=== PATIENT | female | born 1960 | race Caucasian/White ===

== ENCOUNTER 2018-07-26 12:25 | Emergency (ER) | payer OTHER ==
[~2018-07-26] VITALS: Ht 154.9 cm; Wt 70.8 kg
[~2018-07-26 12:25] MED LIST: BUPROPION; CALCIUM; COMPAZINE10 MG PO; COMPAZINE25 MG RE; EFFEXOR; HYDROCODON-ACE1 EAC7 PO; LEVOTHYROXINE 0.1 MG PO; LOMOTIL TABLET1 EACH PO; PAXIL; PAXIL40 MG; PHENERGAN 25 MG25 M1 PO; RIZATRIPTAN10 MG PO; SYNTHROID; VITAMIN D400 UNI1 PO; WELLBUTRIN SR150 MG; ZOFRAN ODT4 MG PO
[2018-07-26] MEDS ORDERED: PAXIL10 MG PO (12:50)
[2018-07-26] MEDS ORDERED: BUSPIRONE HCL10 MG PO (12:50)
[2018-07-26] MEDS ORDERED: SYNTHROID112 MC1 PO (12:50)
[2018-07-26] MEDS ORDERED: METHYLPHENIDATE5 M1 PO (12:51)
[2018-07-26] MEDS ORDERED: MAXALT MLT ODT10 M1 PO (12:51)
[2018-07-26 13:13] LABS: ABSOLUTE BASOPHILS 0.1 thou/uL (0.0-0.2); ABSOLUTE EOSINOPHILS 0.1 thou/uL (0.0-0.7); ABSOLUTE LYMPHOCYTES 2.9 thou/uL (0.8-5.3); ABSOLUTE MONOCYTES 0.4 thou/uL (0.0-1.2); ABSOLUTE NEUTROPHILS 5.2 thou/uL (1.6-8.1); BASOPHILS 1.3 %; EOSINOPHILS 1.3 %; HEMATOCRIT 42.6 % (37.0-47.0); HEMOGLOBIN 13.8 gm/dL (12.0-15.0); MCH 27.1 pg (26.0-34.0); MCHC 32.3 g/dL (28.0-37.0); MCV 83.9 fL (80.0-100.0); MONOCYTES 4.6 %; MPV 7.8 fl. (7.2-11.1); NUCLEATED RBCS 0 /100WBC; PLATELET COUNT* 327 thou/uL (150-400); POLYS 59.8 %; RBC 5.08 mil/uL (4.20-5.00); RDW-CV 14.7 % (10.5-14.5); WBC 8.8 thou/uL (4.0-11.0)
[2018-07-26 13:17] LABS: URINE BILIRUBIN NEGATIVE (Negative); URINE BLOOD NEGATIVE (Negative); URINE CLARITY CLEAR; URINE COLOR YELLOW; URINE GLUCOSE-RANDOM NEGATIVE (Negative); URINE KETONES NEGATIVE (Negative); URINE LEUKOCYTES NEGATIVE (Negative); URINE NITRITE NEGATIVE (Negative); URINE PROTEIN NEGATIVE (Negative); URINE SPECIFIC GRAVITY >= 1.030 (1.005-1.030); URINE UROBILINOGEN 0.2 E.U./dl (0.2-1.0)
[2018-07-26 13:24] LABS: CALCIUM 8.9 mg/dL (8.5-10.1); CREATININE 1.1 mg/dL (0.6-1.3); POTASSIUM 3.3 mmol/L (3.5-5.1)
[2018-07-26 13:28] LABS: ALBUMIN 3.8 g/dL (3.4-5.0); TOTAL BILIRUBIN 0.5 mg/dL (<0.1-1.0); TOTAL PROTEIN 7.4 g/dL (6.4-8.2)
[2018-07-26 14:11] VITALS: BP 96/65
[2018-07-26] MEDS ORDERED: NORCO 5-325 TA1 EACH PO (14:17)
[2018-07-26] MEDS ORDERED: FLAGYL500 M1 PO (14:17)
[2018-07-26] MEDS ORDERED: CIPRO500 MG PO (14:17)
[2018-07-26] MEDS ORDERED: ONDANSETRON HCL4 M2 PO (14:17)
== END 2018-07-26 14:42 | disposition home or self-care (01) ==
LOC: M.ERS 12:25
PROVIDERS: Nurse Practitioner Family
DX: K52.9 Noninfective gastroenteritis and colitis, unspecified (principal); K76.89 Other specified diseases of liver; I88.0 Nonspecific mesenteric lymphadenitis; E03.9 Hypothyroidism, unspecified; F32.9 Major depressive disorder, single episode, unspecified; F41.9 Anxiety disorder, unspecified; N80.9 Endometriosis, unspecified; Z88.8 Allergy status to other drugs, medicaments and biological substances

== ENCOUNTER 2020-01-24 15:14 | Emergency (ER) | payer OTHER ==
[~2020-01-24] VITALS: Ht 154.9 cm; Wt 69.8 kg
[~2020-01-24 15:14] MED LIST changes: +BUSPIRONE HCL10 MG PO; +CIPRO500 MG PO; +FLAGYL500 M1 PO; +MAXALT MLT ODT10 M1 PO; +METHYLPHENIDATE5 M1 PO; +NORCO 5-325 TA1 EACH PO; +ONDANSETRON HCL4 M2 PO; +PAXIL10 MG PO; +SYNTHROID112 MC1 PO
[2020-01-24 16:18] LABS: ABSOLUTE BASOPHILS 0.1 thou/uL (0.0-0.2); ABSOLUTE EOSINOPHILS 0.1 thou/uL (0.0-0.7); ABSOLUTE MONOCYTES 0.4 thou/uL (0.0-1.2); ABSOLUTE NEUTROPHILS 4.8 thou/uL (1.6-8.1); BASOPHILS 0.8 %; EOSINOPHILS 1.6 %; HEMATOCRIT 40.1 % (37.0-47.0); HEMOGLOBIN 13.4 gm/dL (12.0-15.0); LYMPHOCYTES 35.7 %; MCH 28.1 pg (26.0-34.0); MCHC 33.5 g/dL (28.0-37.0); MPV 7.7 fl. (7.2-11.1); NUCLEATED RBCS 0 /100WBC; PLATELET COUNT* 335 thou/uL (150-400); POLYS 56.9 %; RBC 4.77 mil/uL (4.20-5.00); WBC 8.4 thou/uL (4.0-11.0)
[2020-01-24 16:25] LABS: CALCIUM 9.4 mg/dL (8.5-10.1); CREATININE 0.9 mg/dL (0.6-1.3); POTASSIUM 3.7 mmol/L (3.5-5.1)
[2020-01-24 16:36] LABS: TOTAL BILIRUBIN 0.3 mg/dL (<0.1-1.0); TOTAL PROTEIN 7.7 g/dL (6.4-8.2)
[2020-01-24] MEDS ORDERED: TESSALON PERLE100 MG PO (17:17)
[2020-01-24] MEDS ORDERED: DOXYCYCLINE 10100 MG PO (17:17)
[2020-01-24] MEDS ORDERED: MEDROLDOSEPACK PO (17:17)
[2020-01-24] MEDS ORDERED: PROAIR HFA8.5 GM INH (17:18)
[2020-01-24 17:36] VITALS: BP 111/79
--- NOTE | 2020-01-25 10:49 | EKG ---
[place] [address] ELECTROCARDIOGRAM REPORT Name: BENY LEA Room: [facility]#: [id number] Admission: 01/24/20 Attend Phys: Discharge: 01/24/20 Date of : 58 Date of Service: 01/24/20 1520 Report #: [id number] THIS REPORT FOR: //name// [facility] ED Test Date: 2020-01-24 Test Time: 15:20:51 Pat Name: BENY LEA Department: Room: Gender: Art Model: Maci : 1960 Requested By: Joanne Odell Order Number: [id number] MD: Davon Roach Measurements Intervals [place] Rate: 75 P: 56 MN: 164 QRS: -19 QRSD: 88 T: 19 QT: 463 QTc: 518 Interpretive Statements Sinus rhythm Borderline left axis deviation Borderline T abnormalities, anterior leads Prolonged QT interval Compared to ECG 04/14/2014 13:03:15 Prolonged QT interval now present T-wave abnormality still present Electronically Signed On 01-25-2020 10:47:49 CDT by Davon Roach [email or web address] <ELECTRONICALLY SIGNED> By: Frank Roach MD, [facility] 01/25/20 1047 1520 1520 Frank Roach MD, [facility] /EPI
== END 2020-01-24 17:36 | disposition home or self-care (01) ==
LOC: M.ERS 15:14
PROVIDERS: Physician Assistant
DX: J20.9 Acute bronchitis, unspecified (principal); I45.81 Long QT syndrome; E03.9 Hypothyroidism, unspecified; N80.9 Endometriosis, unspecified; Z88.8 Allergy status to other drugs, medicaments and biological substances

== ENCOUNTER 2021-08-08 13:13 | Emergency (ER) | payer OTHER ==
[~2021-08-08] VITALS: Ht 154.9 cm; Wt 70.3 kg
[~2021-08-08 13:13] MED LIST changes: +DOXYCYCLINE 10100 MG PO; +MEDROLDOSEPACK PO; +PROAIR HFA8.5 GM INH; +TESSALON PERLE100 MG PO
[2021-08-08 13:49] LABS: ABSOLUTE EOSINOPHILS 0.1 thou/uL (0.0-0.7); ABSOLUTE LYMPHOCYTES 1.7 thou/uL (0.8-5.3); ABSOLUTE MONOCYTES 0.4 thou/uL (0.0-1.2); ABSOLUTE NEUTROPHILS 6.5 thou/uL (1.6-8.1); BASOPHILS 0.5 %; EOSINOPHILS 1.4 %; HEMATOCRIT 44.5 % (37.0-47.0); HEMOGLOBIN 14.8 gm/dL (12.0-15.0); LYMPHOCYTES 19.7 %; MCH 27.8 pg (26.0-34.0); MCHC 33.2 g/dL (28.0-37.0); MCV 83.7 fL (80.0-100.0); MPV 7.1 fl. (7.2-11.1); NUCLEATED RBCS 0 /100WBC; PLATELET COUNT* 315 thou/uL (150-400); POLYS 73.4 %; RBC 5.32 mil/uL (4.20-5.00); RDW-CV 14.2 % (10.5-14.5); WBC 8.8 thou/uL (4.0-11.0)
[2021-08-08 13:59] LABS: CREATININE 1.1 mg/dL (0.6-1.3); POTASSIUM 3.6 mmol/L (3.5-5.1)
[2021-08-08 14:04] LABS: ALBUMIN 3.8 g/dL (3.4-5.0); TOTAL BILIRUBIN 0.4 mg/dL (<0.1-1.0); TOTAL PROTEIN 7.7 g/dL (6.4-8.2)
[2021-08-08 14:32] LABS: URINE BILIRUBIN NEGATIVE (Negative); URINE BLOOD TRACE (Negative); URINE CLARITY SL CLOUDY; URINE COLOR YELLOW; URINE GLUCOSE-RANDOM NEGATIVE (Negative); URINE KETONES NEGATIVE (Negative); URINE LEUKOCYTES-REFLEX TRACE (Negative); URINE NITRITE-REFLEX NEGATIVE (Negative); URINE PROTEIN NEGATIVE (Negative); URINE SPECIFIC GRAVITY >= 1.030 (1.005-1.030); URINE UROBILINOGEN 0.2 E.U./dl (0.2-1.0)
[2021-08-08 14:46] LABS: BACTERIA-REFLEX None Seen /HPF (None Seen); CASTS None Seen /LPF (None Seen); CRYSTALS None Seen /LPF (None Seen); SQUAMOUS 4-10 Moderate /LPF (0-3); URINE RBC 0-2 Rare /HPF (0-2); URINE WBC-REFLEX 0-5 Rare /HPF (0-5)
[2021-08-08] MEDS ORDERED: CIPRO500 M1 PO (15:20)
[2021-08-08] MEDS ORDERED: METRONIDAZOLE500 M4 PO (15:20)
[2021-08-08] MEDS ORDERED: APAP W/CODEINE1 TA2 PO (15:20)
[2021-08-08] MEDS ORDERED: ONDANSETRON HCL4 M2 PO (15:20)
[2021-08-08 15:30] VITALS: BP 116/79
--- NOTE | 2021-08-09 15:58 | EKG ---
[place] [address] ELECTROCARDIOGRAM REPORT Name: BENY LEA Room: [facility]#: [id number] Admission: 08/08/21 Attend Phys: Discharge: 08/08/21 Date of : 58 Date of Service: 08/08/21 1415 Report #: [id number] THIS REPORT FOR: //name// [facility] ED Test Date: 2021-08-08 Test Time: 14:15:01 Pat Name: BENY LEA Department: Room: Gender: [employer]: [facility] : 1960 Requested By: Joanne Odell Order Number: [id number] MD: Prasanna Aguila Measurements Intervals [place] Rate: 75 P: 42 IA: 162 QRS: -21 QRSD: 93 T: 47 QT: 385 QTc: 430 Interpretive Statements Sinus rhythm Borderline left axis deviation Borderline low voltage, extremity leads Nonspecific T abnormalities, anterior leads Compared to ECG 01/24/2020 15:20:51 Prolonged QT interval no longer present T-wave abnormality still present Electronically Signed On 08-09-2021 15:58:31 PATIENT RELATIONS LIAISON by Prasanna Aguila [email or web address] <ELECTRONICALLY SIGNED> By: Prasanna Aguila MD, FAC 08/09/21 1558 1415 1415 Prasanna Aguila MD, FAC /EPI
== END 2021-08-08 15:31 | disposition home or self-care (01) ==
LOC: M.ERS 13:13
PROVIDERS: Physician Assistant
DX: K52.9 Noninfective gastroenteritis and colitis, unspecified (principal); E03.9 Hypothyroidism, unspecified; F32.9 Major depressive disorder, single episode, unspecified; F41.9 Anxiety disorder, unspecified; Z79.899 Other long term (current) drug therapy; Z88.8 Allergy status to other drugs, medicaments and biological substances

== ENCOUNTER → 2021-08-17 | Outpatient (CLI) | payer OTHER ==
[~2021-08-17] MED LIST changes: +APAP W/CODEINE1 TA2 PO; +CIPRO500 M1 PO; +METRONIDAZOLE500 M4 PO
--- NOTE | 2021-08-17 16:00 | CARDNUC ---
[place] [address] CARDIAC NUCLEAR IMAGING REPORT Name: BENY LEA Jason Room: [facility]#: [id number] Admission: 08/17/21 Attend Phys: Dieter Macias, Discharge: Date of : 58 Date of Service: 08/17/21 1600 Report #: [id number] THIS REPORT FOR: cc: Charles Swanson Steve T. DO [place],Dieter Cedeno MD [facility] ~ APPROVED REPORT Imaging Protocol: Stress Tc-99m/Rest Tc-99m 1 day Study performed: 08/17/2021 09:02:42 Indication: Chest pain Patient Location: Out-Patient Stress Nurse: Selena Tapia RN Ht: 5 ft 1 in Wt: 160 lbs BSA: 1.72 m2 BMI: 30.22 Medical History Medical History: Hyperlipidemia Medications: no cardiac meds Allergies: lamotrigine Cardiac Risk Factors: Age, FHX of CAD, Hyperlipidemia Exercise History: Physically active Resting Data Rest SPECT myocardial perfusion imaging was performed in supine position 30 minutes following the intravenous injection of 11.2 mCi of Tc-99m Sestamibi. The images were gated to evaluate regional wall motion and calculate left ventricular ejection fraction. Administration Route: IV Administration Site: Right AC Exercise Stress At peak stress, the patient was injected intravenously with 32.6mCi of Tc-99m Sestamibi. Time of stress injection: 09:10 Administration Route: IV Administration Site: Right AC Heart Rate at time of stress injection: 130 bpm. Patient continued to exercise for 1 minute(s). Gated Stress SPECT was performed 30 minutes [place] [address] CARDIAC NUCLEAR IMAGING REPORT Name: BENY LEA Room: [facility]#: [id number] Admission: 08/17/21 Attend Phys: Dieter Macias, Discharge: Date of : 58 Date of Service: 08/17/21 1600 Report #: [id number] The images were gated to evaluate regional wall motion and calculate left ventricular ejection fraction. Prone imaging was performed. Stress Test Details Stress Test: Exercise stress testing was performed using a Socar protocol. HR Max Heart Rate (APMHR): 159 bpm Resting HR: 70 bpm Target HR (85% APMHR): 135 bpm Max HR Achieved: 129 bpm % of APMHR: 81 Recovery HR: 83 bpm BP Resting BP: 117/80 mmHg Max BP: 189/101 mmHg Recovery BP: 127/83 mmHg ECG Resting ECG: Sinus Rhythm Stress ECG: Sinus Tachycardia ST Change: None Arrhythmia: None Recovery ECG: Sinus Rhythm Recovery ST Change: None Recovery Arrhythmia: None Clinical Reason for Termination: Patient Request, Fatigue Stress Symptoms: Dyspnea, Fatigue, Leg Fatigue Exercise duration: 10 min 30 sec Exercise capacity: 10.85 METs Functional Aerobic Impairment 81% The patient tolerated standard Oscar protocol exercise without significant cardiac symptoms. She exhibited good exercise tolerance. Nurse Comments Pt unable to reach target heart rate but ekg showed obvious st depression so was injected at maximum effort, 81%. Stress ECG Conclusion Baseline twelve-lead EKG shows sinus rhythm without significant ST segment or T wave abnormality. EKGs obtained during and post exercise show sinus rhythm with sinus tachycardia with no significant ST segment or T wave changes when compared [place] [address] CARDIAC NUCLEAR IMAGING REPORT Name: BENY LEA Room: [facility]#: [id number] Admission: 08/17/21 Attend Phys: Dieter Macias, Discharge: Date of : 58 Date of Service: 08/17/21 1600 Report #: [id number] no stress-induced arrhythmias. Study Quality Study: Good Artifact: No artifact Study Data At rest, the left ventricular ejection fraction was 73%.. Post stress, the left ventricular ejection was 78%.. TID = 0.91. Perfusion Perfusion images obtained at rest and post exercise stress showed uniform uptake of the radioisotope throughout the myocardium. There were no defects to suggest infarct or ischemia. Wall Motion Normal left ventricular wall motion. Nuclear Conclusion ECG Findings: negative for ischemia Clinical Findings: negative for ischemia Nuclear Findings: negative for ischemia Exercise Capacity: normal Risk Study: low Perfusion images show no defect to suggest infarct or ischemia. Left ventricular systolic function appears normal on gated studies. This is a low risk study. <Conclusion> Baseline twelve-lead EKG shows sinus rhythm without significant ST segment or T wave abnormality. EKGs obtained during and post exercise show sinus rhythm with sinus tachycardia with no significant ST segment or T wave changes when compared to baseline. There were no stress-induced arrhythmias. <ELECTRONICALLY SIGNED> By: Dieter Macias MD, FACC 08/17/211599 99 99 Dieter Macias MD, FACC /INF
== END ==
LOC: M.NUC 07-23 15:13
PROVIDERS: ATTEND Internal Medicine Cardiovascular Disease
DX: R07.9 Chest pain, unspecified (principal)